=== PATIENT | female | born 1950 | race Caucasian/White ===

== ENCOUNTER 2023-09-10 10:01 | Outpatient (CLI) | payer OTHER | END 2023-09-10 10:02 | disposition home or self-care (01) | LOC: CSHMAMMO 10:01 | PROVIDERS: ATTEND Internal Medicine | DX: Z12.31 Encounter for screening mammogram for malignant neoplasm of breast (principal); Z13.820 Encounter for screening for osteoporosis; N64.89 Other specified disorders of breast; M81.0 Age-related osteoporosis without current pathological fracture; M85.852 Other specified disorders of bone density and structure, left thigh; Z78.0 Asymptomatic menopausal state | CPT/HCPCS: 77063; 77067; 77080 ==

== ENCOUNTER 2023-11-12 15:29 | Outpatient (CLI) | payer OTHER | END 2023-11-12 15:30 | disposition home or self-care (01) | LOC: CSHRAD 15:29 | PROVIDERS: ATTEND Internal Medicine | DX: M54.89 Other dorsalgia (principal); M43.9 Deforming dorsopathy, unspecified; M47.814 Spondylosis without myelopathy or radiculopathy, thoracic region | CPT/HCPCS: 72070; 72100 ==